=== PATIENT | female | born 1985 | race Caucasian/White ===

== ENCOUNTER 2018-10-30 21:20 | Emergency (ER) | payer OTHER, MEDICAID ==
[2018-10-30] MEDS ORDERED: Silver Sulfadiazine 1% Crm 50 GM Tube TOP ONE (21:41)
[2018-10-30] MEDS ORDERED: Acetaminophen/HYDROcodone 325-5 MG Tab PO ONE (21:41)
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
== END 2018-10-30 22:10 | disposition home or self-care (01) ==
LOC: JD.ED 21:20
DX: T24.211A Burn of second degree of right thigh, initial encounter (principal); T31.0 Burns involving less than 10% of body surface; F41.9 Anxiety disorder, unspecified; F32.9 Major depressive disorder, single episode, unspecified; Z79.899 Other long term (current) drug therapy; X11.8XXA Contact with other hot tap-water, initial encounter
CPT/HCPCS: 16020; 99283; A9270; 16000